=== PATIENT | male | born 1965 | race Caucasian/White ===

== ENCOUNTER 2019-02-20 09:02 | Emergency (ER) | payer BC ==
--- NOTE | 2019-02-20 09:10 | EDPHY ---
H & P Time Seen by Provider: 02/20/19 09:05 HPI/ROS: HPI: This is a 53-year-old male who presents with Chief Complaint: Right flank pain Location: Right flank Quality: Sharp pain Duration: 5-6 days Signs and Symptoms: no fever,+ nausea, no vomiting, no hematemesis, no blood in stool, no abdominal bloating, no diarrhea, no back pain, no blood in his urine, no testicular/groin pain, no indigestion, no chest pain, no shortness of breath Timing: Worsening Severity: 08/13 Context: Patient presents with complaints of right flank sharp pain that is nonradiating in nature that started approximately 6 days ago starting Saturday evening. Patient reports that he was seen in the emergency room in on Saturday and diagnosed with a 3 mm right ureteral stone. Given IV fluids and pain medication and discharged home. He reports that the right flank pain has remained constant and he does not believe that he has passed the stone. Last urinated this morning when he woke up. Patient Is in town for business from [place]. 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 Patient reports that he has had a poor appetite secondary to pain. Modifying Factors: EMS gave patient pain medication en route and dropped pain from 08/13 to 12/14 Comment: ROS: A comprehensive 10 system review of systems is otherwise negative aside from elements mentioned in the history of present illness. MEDICAL/SURGICAL/SOCIAL HISTORY: Medical history: Hyperlipidemia, kidney stones, depression, type 2 diabetes mellitus managed by oral agents Surgical history: Denies Social history: Employed. Nonsmoker. Family history noncontributory. CONSTITUTIONAL: Polite and cooperative adult white male, awake and alert, no obvious distress HEENT: Atraumatic and normocephalic, PERRL, EOMI. Wears glasses, Nares patent; no rhinorrhea; no nasal mucosal edema. Tympanic membranes clear. Oropharynx clear, no exudate and moist pink mucosa. Airway patent. No lymphadenopathy. No meningismus. Cardiovascular: Normal S1/S2, regular rate, regular rhythm, without murmur rub or gallop. PULMONARY/CHEST: Symmetrical and nontender. Clear to auscultation bilaterally. Good air movement. No accessory muscle usage. ABDOMEN: Soft, nondistended, moderate right flank tenderness, mild right lower quadrant tenderness, no rebound, no guarding, no peritoneal signs, no masses or organomegaly. No CVAT. EXTREMITIES: 2/2 pulses, strength 5/5, no deformities, no clubbing, no cyanosis or edema. NEUROLOGICAL: no focal neuro deficits. GCS 15. SKIN: Warm and dry, no erythema. no rash. Good capillary refill. Source: Patient, Old records Exam Limitations: No limitations Constitutional: Initial Vital Signs Heart Rate 58 L 02/20/19 09:04 Respiratory Rate 16 02/20/19 09:04 Blood Pressure 124/74 H 02/20/19 09:04 O2 Sat (%) 99 02/20/19 09:04 O2 Delivery Mode Room Air Allergies/Adverse Reactions: codeine Allergy (Verified 02/20/19 09:09) Home Medications: Medication Instructions Recorded Atorvastatin Calcium 02/20/19 Hydrocodone-Acetamin 5-325 mg 02/20/19 Metformin 1000 mg 02/20/19 Ondansetron Odt [Zofran Odt 4 mg 4 mg PO Q4 PRN #12 tab 02/20/19 (*)] Sertraline HCl 02/20/19 Tamsulosin HCl [Flomax 0.4 MG (*)] 0.4 mg PO DAILY #10 cap 02/20/19 Zofran 02/20/19 oxyCODONE IR [Oxycodone Ir (*)] 15 mg PO Q4-6PRN PRN #12 tab 02/20/19 Medical Decision Making - Diagnostics Imaging Results: Imaging Impressions Abdomen/Pelvis CT 02/20/19 09:13 Impression: 1. 4 mm distal right ureteral stone with mild obstructive uropathy and forniceal rupture. 2. Bilateral nephrolithiasis. 3. Benign-appearing nodule overlying the pancreatic tail, which is statistically likely to represent a splenule, however is incompletely characterized on this unenhanced study. If the patient has had previous imaging of the abdomen, we would be happy to review it. In the absence of previous imaging of the abdomen, pancreatic protocol CT or MRI abdomen with contrast is recommended for further evaluation. 4. Constipation. 5. Additional findings as above. Findings discussed with Maria Del Carmen Babcock on 02/20/2019 at 10:25 a.m. Attention: This CT examination is specifically designed to evaluate patients who are clinically suspected of having acute obstructive uropathy. This examination does not use radiographic contrast and provides only a limited evaluation of the abdomen, pelvis and retroperitoneum. If there is further clinical suspicion for pathological conditions other than obstructive uropathy, a complete CT evaluation of the abdomen and pelvis utilizing intravenous and enteric contrast should be considered. ED Course/Re-evaluation: Vital signs reviewed and stable upon arrival. No systemic signs. IV access, laboratory studies, urinalysis, CT abdomen pelvis scan without contrast ordered Patient given 2 L normal saline, p.o. Flomax, IV Toradol, IV Zofran 4 mg 0945: Laboratory studies reviewed and show WBC 11 K with no left shift, potassium 4.3, BUN 25, creatinine 1.4, glucose 101 1024: Called by Dr. Reyes who reports CT abdomen and pelvis scan shows 4 mm stone at the UVJ on the right side with moderate hydronephrosis. Incidentally he has a stone in the right kidney measuring 2 mm and in the left kidney measuring 4 mm. There is a pancreatic tail mass that appears to be a splenule that will need pancreatic protocol imaging outpatient either CT abdomen pelvis with contrast or MRI. Normal appendix. 1030: Reassessed patient who reports moderate relief of symptoms and asking to be discharged home. Offer patient admission for continued IV fluids and pain control until the stone passes as he has failed outpatient therapy. Patient reports that he feels comfortable going home with pain medications, antiemetics and Flomax this time as he was not given it earlier in the week. 1040: Provided urine sample 1108: Urinalysis shows trace ketones, 3+ blood, 10-15 RBCs, 1-3 WBCs; no sanket signs of infection. No indication for antibiotics Again patient asked to be discharged home. Given a prescription for oxycodone, Zofran, Flomax. Urology referral provided. Tolerating p.o. Patient is flying back to [place] tomorrow and abdomen and pelvis CT scan provided to him on disc. This patient was seen under the supervision of my primary supervising physician. I evaluated and cared for this patient independently. Differential Diagnosis: Flank pain including but not limited to musculoskeletal causes, kidney stone, pyelonephritis, shingles, and intra-abdominal causes such as diverticulitis and appendicitis. - Data Points Laboratory Results: Laboratory Results 02/20/19 09:00 02/20/19 09:00 02/20/19 02/20/19 02/20/19 10:50 09:00 09:00 WBC 10.52 10^3/uL H 10^3/uL (3.80-9.50) RBC 5.15 10^6/uL 10^6/uL (4.40-6.38) Hgb 15.8 g/dL g/dL (13.7-17.5) Hct 45.1 % % (40.0-51.0) MCV 87.6 fL fL (81.5-99.8) MCH 30.7 pg pg (27.9-34.1) MCHC 35.0 g/dL g/dL (32.4-36.7) RDW 13.7 % % (11.5-15.2) Plt Count 260 10^3/uL 10^3/uL (150-400) MPV 10.2 fL fL (8.7-11.7) Neut % (Auto) 64.7 % % (39.3-74.2) Lymph % (Auto) 15.4 % % (15.0-45.0) [place] % (Auto) 8.6 % % (4.5-13.0) Eos % (Auto) 10.7 % H % (0.6-7.6) Baso % (Auto) 0.3 % % (0.3-1.7) Nucleat RBC Rel Count 0.0 % % (0.0-0.2) Absolute Neuts (auto) 6.81 10^3/uL H 10^3/uL (1.70-6.50) Absolute Lymphs (auto) 1.62 10^3/uL 10^3/uL (1.00-3.00) Absolute Monos (auto) 0.90 10^3/uL H 10^3/uL (0.30-0.80) Absolute Eos (auto) 1.13 10^3/uL H 10^3/uL (0.03-0.40) Absolute Basos (auto) 0.03 10^3/uL 10^3/uL (0.02-0.10) Absolute Nucleated RBC 0.00 10^3/uL 10^3/uL (0-0.01) Immature Gran % 0.3 % % (0.0-1.1) Immature Gran # 0.03 10^3/uL 10^3/uL (0.00-0.10) Sodium 143 mEq/L mEq/L (135-145) Potassium 4.3 mEq/L mEq/L (3.5-5.2) Chloride 109 mEq/L mEq/L (97-110) Carbon Dioxide 20 mEq/l L mEq/l (22-31) Anion Gap 14 mEq/L mEq/L (6-14) BUN 25 mg/dL H mg/dL (7-23) Creatinine 1.4 mg/dL H mg/dL (0.7-1.3) Estimated GFR 53 Glucose 101 mg/dL H mg/dL (70-100) Calcium 9.8 mg/dL mg/dL (8.5-10.4) Urine Color PALE YELLOW Urine Appearance CLEAR Urine pH 5.0 (5.0-7.5) Ur Specific [place] 1.012 (1.002-1.030) Urine Protein NEGATIVE (NEGATIVE) Urine Ketones TRACE H (NEGATIVE) Urine Blood 3+ H (NEGATIVE) Urine Nitrate NEGATIVE (NEGATIVE) Urine Bilirubin NEGATIVE (NEGATIVE) Urine Urobilinogen NEGATIVE EU EU (0.2-1.0) Ur Leukocyte Esterase NEGATIVE (NEGATIVE) Urine RBC 10-15 /hpf H /hpf (0-3) Urine WBC 3-5 /hpf H /hpf (0-3) Ur Epithelial Cells NONE SEEN /lpf /lpf (NONE-1+) Hyaline Casts 1-5 /lpf /lpf (0-1) Urine Mucus TRACE /lpf /lpf (NONE-1+) Urine Glucose NEGATIVE (NEGATIVE) Medications Given: Discontinued Medications Sodium Chloride (Ns) 1,000 mls @ 0 mls/hr IV ONCE ONE; Wide Open PRN Reason: Protocol Stop: 02/20/19 09:14 Last Admin: 02/20/19 09:20 Dose: 1,000 mls Sodium Chloride (Ns) 1,000 mls @ 0 mls/hr IV ONCE ONE; Wide Open PRN Reason: Protocol Stop: 02/20/19 09:14 Last Admin: 02/20/19 09:21 Dose: 1,000 mls Ketorolac Tromethamine (Toradol) 30 mg IVP EDNOW ONE Stop: 02/20/19 09:14 Last Admin: 02/20/19 09:19 Dose: 30 mg Ondansetron HCl (Zofran) 4 mg IVP EDNOW ONE Stop: 02/20/19 09:14 Last Admin: 02/20/19 09:19 Dose: 4 mg Tamsulosin HCl (Flomax) 0.4 mg PO EDNOW ONE Stop: 02/20/19 09:15 Last Admin: 02/20/19 09:20 Dose: 0.4 mg Departure - Departure Disposition: Home, Routine, Self-Care Clinical Impression: Bilateral nephrolithiasis, Right ureteral calculus, Hydronephrosis due to obstruction of ureter, Pancreatic lesion Condition: Good Instructions: Kidney Stones (ED), Renal Colic (ED), How to Strain Your Urine ( ED), Ureteral Stones (ED) Additional Instructions: Consume a minimum of 10-12 glasses of water or electrolyte fluid replacement drinks that include Gatorade, Powerade, Pedialyte. Take Zofran 1 tab every 4 hours as needed for nausea, vomiting. Take Tylenol 650 mg every 4 hours and/or Ibuprofen 600 mg every 8 hours with food as needed for pain. Use oxycodone every 4-6 hours as needed for severe/break through pain. Strain all of your urine. Take Flomax daily until you pass the stone. Follow up with Urology. Return at once for any worsening symptoms or concerns. CT abdomen and pelvis scan shows: Benign-appearing nodule overlying the pancreatic tail, which is statistically likely to represent a splenule, however is incompletely characterized on this unenhanced study. If the patient has had previous imaging of the abdomen, we would be happy to review it. In the absence of previous imaging of the abdomen, pancreatic protocol CT or MRI abdomen with contrast is recommended for further evaluation. Referrals: Tej Enrique MD [Medical Doctor] - As per Instructions Prescriptions: Ondansetron Odt [Zofran Odt 4 mg (*)] 4 mg PO Q4 PRN #12 tab PRN Reason: Nausea/Vomiting, Use 1st oxyCODONE IR [Oxycodone Ir (*)] 15 mg PO Q4-6PRN PRN #12 tab PRN Reason: Pain, Breakthrough Tamsulosin HCl [Flomax 0.4 MG (*)] 0.4 mg PO DAILY #10 cap
[2019-02-20] MEDS ORDERED: ONDANSETRON 4 MG/2 ML VIAL IVP ONE (09:13)
[2019-02-20] MEDS ORDERED: NS 1,000 ML IV ONE ×2 (09:13)
[2019-02-20] MEDS ORDERED: KETOROLAC 30 MG/1 ML SDV IVP ONE (09:13)
[2019-02-20] MEDS ORDERED: TAMSULOSIN HCL 0.4 MG CAP PO ONE (09:14)
[2019-02-20 09:35] LABS: PLATELET COUNT 260 10^3/uL (150-400)
[2019-02-20 11:35] VITALS: BP 128/81
== END 2019-02-20 11:35 | disposition home or self-care (01) ==
DX: N13.2 Hydronephrosis with renal and ureteral calculous obstruction (principal); K86.9 Disease of pancreas, unspecified; E11.9 Type 2 diabetes mellitus without complications; E78.5 Hyperlipidemia, unspecified; Z79.84 Long term (current) use of oral hypoglycemic drugs; Z79.899 Other long term (current) drug therapy
CPT/HCPCS: 96374; J1885; J2405